=== PATIENT | male | born 1960 | race Caucasian/White ===

== ENCOUNTER → 2023-05-08 | Emergency (ER) | payer OTHER ==
[~2023-05-08] VITALS: Ht 182.9 cm; Wt 96.4 kg
[~2023-05-08] MED LIST: POTASSIUM BICARB 20meq eff tab 20 MEQ TABLET.EFF PO ONE
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
[2023-05-08 16:33] LABS: BASOPHILS % (AUTO) 0.4 % (0-1); EOSINOPHILS % (AUTO) 0.4 % (0-6); HEMATOCRIT 42.9 % (42.0-52.0); HEMOGLOBIN 14.8 g/dl (14.0-17.9); LYMPHOCYTES # (AUTO) 1.8 X10'3 (1.1-4.8); LYMPHOCYTES % (AUTO) 18.5 % (21-51); MEAN CORPUSCULAR HEMOGLOBIN 35.6 PG (27.0-31.0); MEAN CORPUSCULAR HGB CONC 34.6 g/dL (33.0-36.5); MEAN CORPUSCULAR VOLUME 103.1 FL (78-98); MEAN PLATELET VOLUME 8.4 FL (7.4-10.4); MONOCYTES # (AUTO) 0.6 X10'3 (0-0.9); MONOCYTES % (AUTO) 6.4 % (2-12); NEUTROPHILS # (AUTO) 7.3 X10'3 (1.8-7.7); NEUTROPHILS % (AUTO) 74.3 % (42-75); PLATELET COUNT 216 X10'3 (140-440); RED BLOOD COUNT 4.16 X10'6 (4.70-6.10); RED CELL DISTRIBUTION WIDTH 12.7 % (11.5-14.5); WHITE BLOOD COUNT 9.8 X10'3 (4.5-11.0)
[2023-05-08 16:45] LABS: ALANINE AMINOTRANSFERASE 85 U/L (12-78); ALBUMIN 3.9 G/DL (3.4-5.0); ALKALINE PHOSPHATASE 95 IU/L (46-116); ANION GAP 13 (8-16); ASPARTATE AMINO TRANSFERASE 130 U/L (10-37); BILIRUBIN,TOTAL 0.9 MG/DL (0.1-1.0); BLOOD UREA NITROGEN 9 MG/DL (7-18); BUN/CREATININE RATIO 11.5 (10.0-20.0); CALCIUM 8.8 MG/DL (8.5-10.1); CHLORIDE 99 MMOL/L (99-107); CREATININE 0.78 MG/DL (0.60-1.10); ETHANOL < 10 MG/DL (<10); GLUCOSE 120 MG/DL (70-104); SODIUM 136 MMOL/L (135-145); THYROID STIMULATING HORMONE 3.61 ulU/ml (0.34-4.50); eCRCL 105 ML/MIN; eGFR > 90 ML/MIN
[2023-05-08 16:49] LABS: POTASSIUM 2.9 MMOL/L (3.5-5.1)
[2023-05-08 17:14] VITALS: BP 173/106; PULSE 79; RESP 18; TEMP 98.1; O2SAT 95
--- NOTE | 2023-05-08 17:14 | NUR ---
GREGORY VENCES, [facility] STAT[facility] THAT [facility] HAD ADDITIONAL INFORMATION REGARDING THE PATIENT. MS VENCES WAS INFORMED THAT PER [facility], SHE DID NOT COMPLETE THE GABRIEL 5150 PROPERLY AND THAT THE PROVIDER AND [facility] AGREED THAT PT WAS GOING TO BE DISCHARGED
== END | disposition home or self-care (01) ==
LOC: ER 15:56
DX: R44.0 Auditory hallucinations (principal); E87.6 Hypokalemia
CPT/HCPCS: 80053; 80320; 84443; 85025; 99285